=== PATIENT | female | born 1985 | race Caucasian/White ===

== ENCOUNTER → 2017-09-21 | Day surgery (SDC) | payer BC ==
[~2017-09-21] MED LIST: LIDOCAINE 2% PF Vial for OR 5 ML VIAL.; PROPOFOL 20 ML IV
[2017-09-21] MEDS: IV RINGERS,LACTATED 1000ML 1,000 ML IV (07:30)
[2017-09-21 07:38] LABS: NEG OBC UR NEG; POS OBC UR POS
== END | disposition home or self-care (01) ==
LOC: ENDOS 06:59
DX: K64.0 First degree hemorrhoids (principal); K29.50 Unspecified chronic gastritis without bleeding; K31.89 Other diseases of stomach and duodenum; F41.9 Anxiety disorder, unspecified; F32.9 Major depressive disorder, single episode, unspecified; F17.200 Nicotine dependence, unspecified, uncomplicated; Z72.0 Tobacco use
CPT/HCPCS: 43239; 81025; 88305; J2704

== ENCOUNTER → 2017-10-11 | Outpatient (CLI) | payer BC ==
[2017-10-11] MEDS: SINCALIDE 1.36 MCG in IV NORMAL SALINE 50ML 30 ML IV (11:14)
== END | disposition home or self-care (01) ==
LOC: NM 15:33
DX: R10.9 Unspecified abdominal pain (principal); R11.0 Nausea; Z87.891 Personal history of nicotine dependence
CPT/HCPCS: 78226; 96374; 96375; A9537; J2805

== ENCOUNTER → 2017-10-11 | Outpatient (CLI) | payer BC | END | disposition home or self-care (01) | LOC: US 09:16 | DX: K58.9 Irritable bowel syndrome, unspecified (principal) | CPT/HCPCS: 76700 ==